=== PATIENT | male | born 1965 | race Caucasian/White ===

== ENCOUNTER 2024-11-24 10:52 | Emergency (ER) | payer MEDICARE, SELFPAY ==
[2024-11-24 11:05] VITALS: BP 147/91
[2024-11-24 11:48] VITALS: BMI 27.9
--- NOTE | 2024-11-24 11:50 | EDRN ---
Pt states he was in rehab recently and left r/t bed bugs and returns today to go back into rehab for a relapse. Pt uses/smokes meth and relapsed on Sunday. Pt is also presently homeless. Pt states he is only here to return to rehab for relapse.
--- NOTE | 2024-11-24 12:15 | EDRN ---
Eleno Jin NP in room w/pt.
--- NOTE | 2024-11-24 12:28 | ED.GENMED ---
History of Present Illness
General
Chief Complaint: Crisis Evaluation
Source: patient
Exam Limitations: none
Time Seen by Provider: 11/24/24 12:09
Nursing documentation reviewed up to this point in time: agreed with
History of Present Illness
History of Present Illness:
Patient is a 78-year-old male presents to the ER requesting detox from methamphetamines. Patient last used (smoked it) Sunday.
He was living in a recovery house several weeks ago however has been living on the streets since.
He sometimes uses marijuana but denies any other drug use. He has no physical complaints.
Phy Exam
General Physical Exam
General Presentation: no apparent distress
General age: appears stated age
General Skin: warm and dry
General Habitus: normal
General Mental: alert
Neurological Exam
Neurological Exam: alert and oriented x3
Musculoskeletal Exam
Musculoskeletal Exam: full ROM
Skin Exam
Skin Exam: normal color and warm/dry
Psychiatric Exam
Psychiatric Exam: normal mood/affect
Course
Vital Signs
Initial and Last Documented VS:
Initial Vital Signs
Temp Pulse Resp BP Pulse Ox
97.7 F 83 18 147/91 99
11/24/24 11:05 11/24/24 11:05 11/24/24 11:05 11/24/24 11:05 11/24/24 11:05
Last Documented Vital Signs
Temp Pulse Resp BP Pulse Ox
97.7 F 89 16 136/96 98
11/24/24 11:05 11/24/24 12:38 11/24/24 12:38 11/24/24 12:38 11/24/24 12:38
MDM/Problems Addressed
Differential Diagnosis Includes:
Not limited to substance abuse
MDM/Problems Addressed:
Patient is a 58-year-old male presents requesting detox from methamphetamines. Patient has a history of drug abuse last use on Sunday. He has no physical complaints and is awake alert no acute distress. Patient was evaluated by JENNIFER who is
currently looking for placement.
Chronic conditions affecting care:
Oh my Godsubstance abuse
*Pulse Oximetry
SaO2: 99
Oxygen Mode of Delivery: Room air
Patient hypoxic: no
*Critical Care Note
Total Time (30-74mins, 75-104mins- exclusive of procedures): Not Applicable
ED Attending Note
-
Portions of this chart may have been created with voice recognition software.� Occasional wrong word or��sound alike� substitutions may have occurred due to the inherent limitations of voice recognition software.
Discharge Plan
Departure
Patient Disposition: Acute Rehab Facility
Date of Disposition: 11/24/24
Time of Disposition: 14:33
Patient with high blood pressure during this ER visit?: Yes
Condition: Fair
Covid-19: Not Applicable
Discharge Problem:
Substance abuse
Referrals:
UNKNOWN - PT DOES,NOT KNOW [Family Provider]
Interventions
Interventions:
*Risk Screen - Suicide Last Done: 11/24/24 11:05
*General Assessment Last Done: 11/24/24 11:49
*Neglect/Abuse Screening Last Done: 11/24/24 11:49
*ED- Fall Risk Assessment Last Done: 11/24/24 11:49
*ED COVID-19 Vaccine History Last Done: 11/24/24 11:49
*Nursing Disposition Last Done: 11/24/24 15:09
ED-Psychological Assessment Last Done: 11/24/24 11:52
Discharge Date and Time
Discharge Date/Time: 11/24/24 15:11
Print Language: TRINIDADIAN
[2024-11-24 12:38] VITALS: BP 136/96
--- NOTE | 2024-11-24 12:49 | EDRN ---
Tyshawn Lui CARES in room w/ pt at this time.
--- NOTE | 2024-11-24 14:40 | EDRN ---
Per Tyshawn w/ [facility] pt will be leaving at 15:00 and Tyshawn will accompany pt to ride at 14:50 for rehab facility.
== END 2024-11-24 15:11 ==
LOC: EMR 10:52
PROVIDERS: EMERGENCY PHYSICIAN Emergency Medicine
DX: F12.90 Cannabis use, unspecified, uncomplicated (principal); F19.11 Other psychoactive substance abuse, in remission; F17.200 Nicotine dependence, unspecified, uncomplicated; Z59.02 Unsheltered homelessness
CPT/HCPCS: 99285

== ENCOUNTER 2024-12-27 19:51 | Emergency (ER) | payer OTHER, SELFPAY ==
[2024-12-27 19:54] VITALS: BP 133/87
--- NOTE | 2024-12-27 21:49 | ED.GENMED ---
History of Present Illness
General
Chief Complaint: Social Service Referral
Source: patient
Exam Limitations: none
Time Seen by Provider: 12/27/24 21:04
Nursing documentation reviewed up to this point in time: agreed with
History of Present Illness
History of Present Illness:
pt is a 58-year-old male with history of substance abuse presents to the ER after relapsing. He admits to injecting fentanyl and smoking meth recently. He was recently hospitalized at [facility] however was discharged due to insurance reasons
and relapsed.
He has no other complaints.
Phy Exam
General Physical Exam
General Presentation: no apparent distress
General age: appears stated age
General Skin: warm and dry
General Habitus: normal
General Mental: alert
General Hydration: appears well hydrated
Cardiovascular Exam
Cardiovascular Exam: regular rate/rhythm, no murmur and normal peripheral pulses
Pulmonary Exam
Pulmonary Exam: lungs clear and no respiratory distress
Neurological Exam
Neurological Exam: alert and oriented x3
Musculoskeletal Exam
Musculoskeletal Exam: full ROM
Skin Exam
Skin Exam: normal color and warm/dry
Psychiatric Exam
Psychiatric Exam: normal mood/affect
Course
Vital Signs
Initial and Last Documented VS:
Initial Vital Signs
Temp Pulse Resp BP
98.2 F 83 18 133/87
12/27/24 19:54 12/27/24 19:54 12/27/24 19:54 12/27/24 19:54
Last Documented Vital Signs
Temp Pulse Resp BP Pulse Ox
98.2 F 79 14 129/89 98
12/27/24 19:54 12/28/24 00:45 12/28/24 00:45 12/28/24 04:00 12/28/24 04:15
MDM/Problems Addressed
Differential Diagnosis Includes:
not limited to: substance abuse
MDM/Problems Addressed:
Patient is a 58-year-old male history of drug abuse presents to the ER requesting inpatient treatment. He was recently hospitalized at [facility] in mid November. He does report relapsing. He has no complaints he denies any current feelings
of withdrawal. He has been eating lunch trays here and is very well-appearing in no acute distress stable vital signs.
I spoke with FELIBERTO, and there are beds at [facility].
Awaiting bed.
Case d/c w/ JENNIFER: Isela
*Pulse Oximetry
SaO2: 97
Oxygen Mode of Delivery: Room air
Patient hypoxic: no
*Critical Care Note
Total Time (30-74mins, 75-104mins- exclusive of procedures): Not Applicable
ED Attending Note
-
Portions of this chart may have been created with voice recognition software.� Occasional wrong word or��sound alike� substitutions may have occurred due to the inherent limitations of voice recognition software.
Discharge Plan
Departure
Patient Disposition: Acute Rehab Facility
Date of Disposition: 12/27/24
Time of Disposition: 23:12
Patient with high blood pressure during this ER visit?: Yes
Condition: Fair
Covid-19: Not Applicable
Discharge Problem:
Substance abuse
Referrals:
UNKNOWN - PT DOES,NOT KNOW [Family Provider]
Interventions
Interventions:
*Risk Screen - Suicide Last Done: 12/27/24 19:54
*General Assessment Last Done: 12/27/24 19:54
*Neglect/Abuse Screening Last Done: 12/28/24 04:36
*ED- Fall Risk Assessment Last Done: 12/28/24 00:13
*ED COVID-19 Vaccine History Last Done: 12/28/24 00:13
*ED Influenza Vaccine History Last Done: 12/28/24 00:13
*Nursing Disposition Last Done: 12/28/24 04:36
ED-Psychological Assessment Last Done: 12/28/24 00:13
Discharge Date and Time
Discharge Date/Time: 12/28/24 04:36
Print Language: BANGLADESHI
[2024-12-27 23:23] VITALS: BP 126/79
[2024-12-28] VITALS: BP 118/69
--- NOTE | 2024-12-28 00:13 | EDRN ---
Report received, patient is sleeping and waiting on [facility]ARES, he ate 2 lunch boxes
[2024-12-28 01:26] VITALS: BP 128/78
--- NOTE | 2024-12-28 01:30 | EDRN ---
Called and spoke with [facility]ES to get update, the women on the phone stated she sent the patient's information over and someone would be calling to speak with the patient, however on her side the protocol she sees is it is between the hours of
[id number], Dr. Collins was informed of this, patient is sleeping in the room.
[2024-12-28 02:00] VITALS: BP 131/76
[2024-12-28 03:00] VITALS: BP 123/72
--- NOTE | 2024-12-28 03:27 | EDRN ---
Patient is sleeping at this time, waiting on BCARES
[2024-12-28 04:00] VITALS: BP 129/89
== END 2024-12-28 04:36 ==
LOC: EMR 19:51
PROVIDERS: EMERGENCY PHYSICIAN Emergency Medicine
DX: F11.10 Opioid abuse, uncomplicated (principal); F15.10 Other stimulant abuse, uncomplicated; R03.0 Elevated blood-pressure reading, without diagnosis of hypertension
CPT/HCPCS: 99283